=== PATIENT | female | born 1940 | race Caucasian/White ===

== ENCOUNTER 2016-07-06 10:14 | Outpatient (CLI) | payer MEDICARE, OTHER | END 2016-07-06 10:15 | disposition home or self-care (01) | LOC: MADLAB 10:14 | PROVIDERS: ATTEND Psychiatry & Neurology Neurology | DX: I63.9 Cerebral infarction, unspecified (principal) | CPT/HCPCS: 36415; 80061; 82550 ==

== ENCOUNTER 2016-10-21 11:22 | Outpatient (CLI) | payer MEDICARE, OTHER ==
--- NOTE | 2016-10-21 12:10 | RAD ---
RIGHT KNEE THREE VIEWS: History: Fall two weeks ago, knee pain. FINDINGS: No evidence of fracture. No evidence of joint effusion. IMPRESSION: No acute abnormality identified. POS: [facility]
--- NOTE | 2016-10-21 16:06 | RAD ---
LEFT KNEE THREE VIEWS: History: Fall two weeks ago with knee pain. FINDINGS: Very mild degenerative change. No fracture. No joint effusion. IMPRESSION: No acute abnormality identified. POS: [facility]
== END 2016-10-21 11:23 | disposition home or self-care (01) ==
LOC: MADRAD 11:22
PROVIDERS: ATTEND Family Medicine
DX: R29.898 Other symptoms and signs involving the musculoskeletal system (principal)

== ENCOUNTER 2016-11-16 09:57 | Outpatient (CLI) | payer MEDICARE, OTHER ==
[2016-11-16 10:24] LABS: #Basophils 0.1 thou/uL (0.0-0.2); #Eosinphils 0.2 thou/uL (0.0-0.7); #Lymphocytes 1.7 thou/uL (1.20-3.40); #Monocytes 0.8 thou/uL (0.11-0.59); #Neutrophils 3.9 thou/uL (1.40-6.50); %Basophils 1.5 % (0.0-1.0); %Eosinophils 3.2 % (0.0-10.0); %Lymphocytes 25.7 % (21.0-51.0); %Monocytes 11.6 % (0.0-10.0); Mean Corpuscular HGB CONC 32.2 g/dL (32.0-36.0); Mean Corpuscular Hemoglobin 30.3 pg (27.0-31.0); Mean Corpuscular Volume 94.2 fl (81.0-99.0); Mean Platelet Volume 9.3 fL (7.4-10.4); Platelet Count 228 thou/uL (130-400); RBC Distribution Width 12.5 % (11.5-14.5); Red Blood Cell (RBC) Count 3.96 mill/uL (4.20-5.40); White Blood Cell (WBC) Count 6.7 thou/uL (4.8-10.8)
[2016-11-16 10:42] LABS: ALT (SGPT) 32 U/L (8-55); AST (SGOT) 33 U/L (5-34); Albumin 3.8 g/dL (3.4-4.8); Alkaline Phosphatase 119 U/L (40-150); Anion Gap 14 mmol/L (10-20); BUN (Urea Nitrogen) 15 mg/dL (9.8-20.1); Bilirubin, Direct 0.1 mg/dL (0.1-0.3); Bilirubin, Total 0.3 mg/dL (0.2-1.2); Calc. Creatinine Clearance 0 mL/min (70-130); Calcium 9.1 mg/dL (7.8-10.44); Carbon Dioxide 27 mmol/L (23-31); Cardiac Risk 3.6 (Less than 4.5); Chloride 106 mmol/L (98-107); Cholesterol 262 mg/dl (< 200 Desired); Estimated GFR-MDRD 61; Glucose 93 mg/dL (83-110); HDL Cholesterol 72 mg/dL (>60 Neg Risk); LDL Cholesterol, Calculated 166 mg/dL; Potassium 4.7 mmol/L (3.5-5.1); Protein, Total 7.4 g/dL (6.0-8.3); Sodium 142 mmol/L (136-145); Triglycerides 120 mg/dL (Less than 150)
== END 2016-11-16 09:58 | disposition home or self-care (01) ==
LOC: MADLABBHPM 09:57
PROVIDERS: ATTEND Family Medicine
DX: E78.2 Mixed hyperlipidemia (principal); E03.9 Hypothyroidism, unspecified; I10 Essential (primary) hypertension
CPT/HCPCS: 36415; 80048; 80061; 80076; 84443; 85025

== ENCOUNTER 2017-06-27 15:58 | Outpatient (CLI) | payer MEDICARE, OTHER ==
[2017-06-27 17:24] LABS: Bilirubin Negative (Negative); Blood, Urine Trace (Negative); Glucose, Urine (Dipstick) 100 mg/dL (Negative); Leukocyte Negative (Negative); Nitrite Positive (Negative); Protein, Urine (Dipstick) Trace mg/dL (Neg-Trace)
[2017-06-27 17:45] LABS: Clarity Hazy (Clear)
[2017-06-27 17:47] LABS: Bacteria/HPF Rare-Few HPF (None Seen); Squamous Epithelial 0-3 HPF (0-3); WBC/HPF 0-3 HPF (0-3)
== END 2017-06-27 15:59 | disposition home or self-care (01) ==
LOC: MADLABBHPM 15:58
PROVIDERS: ATTEND Family Medicine
DX: N39.0 Urinary tract infection, site not specified (principal)
CPT/HCPCS: 81001; 87086

== ENCOUNTER 2019-03-22 12:54 | Emergency (ER) | payer MEDICARE, OTHER ==
--- NOTE | 2019-03-22 13:41 | CT ---
CT Brain WO Con: 03/22/2019 1:15 PM CLINICAL HISTORY: Fall. COMPARISON: 09/24/2018 FINDINGS: Hemorrhage: None. Ventricular system: Normal in size and morphology for the patient's age. Cerebral parenchyma: Microvascular ischemic disease Midline shift: None. Mass: No mass effect. Calvarium: Normal. 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 IMPRESSION: No acute intracranial abnormalities.
--- NOTE | 2019-03-22 13:46 | CT ---
Exam: CT cervical spine without contrast HISTORY: Fall. For head laceration. Posttraumatic pain. COMPARISON: 11/11/2015 FINDINGS: No craniocervical dissociation. Appropriate alignment of the lateral masses of C1 and C2. Intact odon toid process Appropriate alignment of the facets. Stable anterolisthesis of C4 upon C5. Stable loss of disc space height and osteophyte formation at C5 -C6 and C6-7. Stable anterolisthesis of C7 upon T1 and T1 upon T2. Soft tissue neck structures: No mass, lymphadenopathy or hematoma. No prevertebral soft tissue swelli ng. Upper mediastinum and lung apices: Chronic bilateral apical pleural thickening. Central spinal canal: Varying degrees of central canal stenosis and neural foraminal narrowing due to degenerative change. Vertebral bodies: Cervical spine vertebral body height is maintained. No fracture. IMPRESSION: 1. No evidence of fracture 2. Chronic degenerative changes of the cervical spine.
[2019-03-22] MEDS ORDERED: Lidocaine 2% 20 ml MDV ONE (13:56)
[2019-03-22] MEDS ORDERED: Triple Antibiotic Oint 1 GM Packet ONE ×3 (14:02→14:18)
[2019-03-22] MEDS ORDERED: Adacel (T-DAP) 0.5 ML SYRINGE ONE (14:08)
== END 2019-03-22 15:00 | disposition home or self-care (01) ==
LOC: MADERS 12:54
DX: S01.81XA Laceration without foreign body of other part of head, initial encounter (principal); S50.311A Abrasion of right elbow, initial encounter; S80.212A Abrasion, left knee, initial encounter; E78.5 Hyperlipidemia, unspecified; E78.00 Pure hypercholesterolemia, unspecified; E03.9 Hypothyroidism, unspecified; I10 Essential (primary) hypertension; F03.90 Unspecified dementia, unspecified severity, without behavioral disturbance, psychotic disturbance, mood disturbance, and anxiety; Z86.73 Personal history of transient ischemic attack (TIA), and cerebral infarction without residual deficits; W18.30XA Fall on same level, unspecified, initial encounter
CPT/HCPCS: 12013; 70450; 72125; 90471; 90715; J2001